=== PATIENT | male | born 1975 | race Caucasian/White ===

== ENCOUNTER 2022-06-20 15:08 | Emergency (ER) | payer OTHER ==
[~2022-06-20] VITALS: Ht 175.3 cm; Wt 71.2 kg
[2022-06-20 15:13] VITALS: BP 157/118
--- NOTE | 2022-06-20 15:20 | NUR ---
PT AMBULATED TO BED 9
[2022-06-20] MEDS ORDERED: PENICILLIN G BENZATHINE L-A 1.2 MU/2 ML SYR IM ONE (15:35)
[2022-06-20 16:06] LABS: BASOPHILS # (AUTO) 0.1 K/uL (0.00-0.22); BASOPHILS % (AUTO) 0.6 % (0.0-2.0); EOSINOPHILS # (AUTO) 0.1 K/uL (0-0.4); EOSINOPHILS % (AUTO) 1.6 % (0.0-4.0); HEMOGLOBIN 15.4 g/dL (12.0-18.0); LYMPHOCYTES # (AUTO) 1.3 K/uL (2.0-11.5); LYMPHOCYTES % (AUTO) 13.7 % (20.5-51.1); MEAN CORPUSCULAR HEMOGLOBIN 30 pg (27-31); MEAN CORPUSCULAR HGB CONC 34 g/dL (33-37); MONOCYTES # (AUTO) 0.6 K/uL (0.8-1.0); MONOCYTES % (AUTO) 6.8 % (1.7-9.3); NEUTROPHILS # (AUTO) 7.1 K/uL (1.8-7.7); NEUTROPHILS % (AUTO) 77.3 % (42.2-75.2); PLATELET COUNT (AUTO) 274 K/uL (140-450); RED BLOOD CELL COUNT(AUTO) 5.17 MIL/uL (4.20-6.10); RED CELL DISTRIBUTION WIDTH 13.1 % (11.6-13.7); WHITE BLOOD COUNT (AUTO) 9.2 K/uL (4.8-10.8)
[2022-06-20 16:27] LABS: ALBUMIN 3.9 g/dL (3.4-5.0); ANION GAP 14.1 (8-16); ASPARTATE AMINOTRANSFERASE 20 U/L (15-37); CARBON DIOXIDE 25.9 mmol/L (21-32); CHLORIDE 104 mmol/L (98-107); CREATININE 0.8 mg/dL (0.6-1.3); GFR ARICAN-AMERICAN 133 mL/min (>90); GLUCOSE 98 mg/dL (74-106); MAGNESIUM 1.9 mg/dL (1.8-2.4); SODIUM SERUM 140 mmol/L (136-145); TOTAL BILIRUBIN 0.4 mg/dL (0.0-1.0); UREA NITROGEN, BLOOD 13 mg/dL (7-18)
[2022-06-20 16:55] VITALS: BP 148/97
== END 2022-06-20 16:56 | disposition home or self-care (01) ==
LOC: MED 15:08
DX: R55 Syncope and collapse (principal)
CPT/HCPCS: 36415; 80053; 81002; 82550; 83735; 84484; 85025; 93005; 99284

== ENCOUNTER 2023-11-11 08:04 | Emergency (ER) | payer OTHER ==
[~2023-11-11] VITALS: Ht 175.3 cm; Wt 74.8 kg
[2023-11-11 08:07] VITALS: BP 196/128; PULSE 72; RESP 18; TEMP 97.7; O2SAT 99
[2023-11-11] MEDS: LIDOCAINE MPF 1% 10 MG/ML VIAL INJ ONE (08:57)
[2023-11-11] MEDS ORDERED: KETOROLAC 30 MG/ML VIAL ONE (10:08)
[2023-11-11] MEDS: KETOROLAC 30 MG/ML VIAL IVP ONE (10:33)
[2023-11-11] MEDS ORDERED: NAPR-1704 PO (10:33)
[2023-11-11 11:06] VITALS: BP 153/101; PULSE 79; RESP 19; O2SAT 99
== END 2023-11-11 11:07 | disposition home or self-care (01) ==
LOC: MED 08:04
DX: S01.81XA Laceration without foreign body of other part of head, initial encounter (principal); Z79.1 Long term (current) use of non-steroidal anti-inflammatories (NSAID); W22.8XXA Striking against or struck by other objects, initial encounter; Y92.89 Other specified places as the place of occurrence of the external cause; Y93.89 Activity, other specified; Y99.8 Other external cause status
CPT/HCPCS: 12015; 70450; 96374; 99285; J1885; J2001

== ENCOUNTER 2024-02-09 21:22 | Emergency (ER) | payer OTHER ==
[~2024-02-09] VITALS: Ht 175.3 cm; Wt 78.5 kg
[~2024-02-09 21:22] MED LIST: NAPR-1704 PO
[2024-02-09 22:17] VITALS: BP 189/120; PULSE 95; RESP 20; TEMP 97.3; O2SAT 97
[2024-02-09 23:43] VITALS: BP 178/118; PULSE 90; RESP 20; TEMP 97.5; O2SAT 98
== END 2024-02-10 00:01 | disposition left against medical advice (07) ==
LOC: MED 21:22
DX: M79.89 Other specified soft tissue disorders (principal); Z79.899 Other long term (current) drug therapy
CPT/HCPCS: 99281